=== PATIENT | female | born 2000 | race Caucasian/White ===

== ENCOUNTER 2020-10-16 10:28 | Emergency (ER) | payer MEDICAID, SELFPAY | END 2020-10-16 11:00 | disposition home or self-care (01) | LOC: CSHERS 10:28 | DX: Z32.01 Encounter for pregnancy test, result positive (principal) | CPT/HCPCS: 99281 ==

== ENCOUNTER 2020-10-18 12:08 | Emergency (ER) | payer SELFPAY ==
[2020-10-18 14:05] LABS: #Eosinphils 0.5 10x3/uL (0.0-0.5); #Monocytes 0.6 10x3/uL (0.0-1.1); %Basophils 0.4 % (0.0-2.0); %Eosinophils 9.2 % (0.0-6.0); %Monocytes 11.1 % (0.0-10.0); %Neutrophils 54.9 % (40.0-75.0); Hemoglobin 13.6 g/dL (12.0-15.5); Mean Corpuscular HGB CONC 32.9 g/dL (32.0-36.0); Mean Corpuscular Hemoglobin 28.6 pg (27.0-33.0); Mean Corpuscular Volume 87.2 fl (81.6-98.3); Mean Platelet Volume 10.6 fl (7.4-10.4); Platelet Count 273 10x3/uL (150-450); Red Blood Cell (RBC) Count 4.75 10x6/uL (3.90-5.03); White Blood Cell (WBC) Count 5.4 10x3/uL (3.5-10.5)
[2020-10-18 14:19] LABS: ALT (SGPT) 22 U/L (8-55); AST (SGOT) 19 U/L (5-34); Albumin 4.1 g/dL (3.5-5.0); Alkaline Phosphatase 126 U/L (40-110); Anion Gap 13 mmol/L (10-20); BUN (Urea Nitrogen) 15 mg/dL (7.0-18.7); Bilirubin, Total 0.8 mg/dL (0.2-1.2); Calc. Creatinine Clearance 0 mL/min (70-130); Calcium 8.9 mg/dL (7.8-10.44); Carbon Dioxide 23 mmol/L (22-29); Chloride 111 mmol/L (98-107); Globulin 2.7 g/dL (2.4-3.5); Glucose 93 mg/dL (70-105); Protein, Total 6.8 g/dL (6.0-8.3); Sodium 143 mmol/L (136-145)
[2020-10-18 14:58] LABS: Bilirubin Neg (Negative); Blood, Urine 250 (Negative); Clarity Clear (Clear); Glucose, Urine (Dipstick) Normal (Negative); Ketone, Urine Negative (Negative); Leukocyte 25 (Negative); Nitrite Negative (Negative); Protein, Urine (Dipstick) 15 mg/dl (Neg-Trace); Specific Gravity, Urine 1.025 (1.002-1.036)
[2020-10-18 15:08] LABS: Bacteria/HPF None Seen HPF (None Seen); Mucous/LPF 1+ LPF (<2+); Squamous Epithelial 0-3 HPF (0-3)
== END 2020-10-18 15:10 | disposition home or self-care (01) ==
LOC: CSHERS 12:08
DX: O20.9 Hemorrhage in early pregnancy, unspecified (principal)
CPT/HCPCS: 76856; 80053; 81003; 81015; 84702; 85025; 86900; 86901

== ENCOUNTER 2021-10-14 08:20 | Outpatient (CLI) | payer OTHER ==
[2021-10-14 18:46] LABS: SARS-CoV-2 PCR by NAA Not Detected (NotDetected)
== END 2021-10-14 08:21 | disposition home or self-care (01) ==
LOC: CSHLAB 08:20
PROVIDERS: ATTEND Student in an Organized Health Care Education/Training Program
DX: Z20.822 Contact with and (suspected) exposure to COVID-19 (principal)
CPT/HCPCS: U0003; U0005

== ENCOUNTER 2022-08-20 18:42 | Day surgery (SDC) | payer OTHER ==
[2022-08-20 19:15] VITALS: BMI 32.1
[2022-08-20] MEDS ORDERED: hydrALAZINE 20 MG/ML VIAL SLOW IVP PRN (19:57)
== END 2022-08-20 20:00 | disposition home or self-care (01) ==
LOC: CSHLD/OP 18:42
PROVIDERS: ATTEND Student in an Organized Health Care Education/Training Program
DX: O26.93 Pregnancy related conditions, unspecified, third trimester (principal); R10.2 Pelvic and perineal pain; Z3A.30 30 weeks gestation of pregnancy
CPT/HCPCS: 99282

== ENCOUNTER 2022-09-29 17:46 | Day surgery (SDC) | payer OTHER | END 2022-09-29 21:32 | disposition home or self-care (01) | LOC: CSHLD/OP 17:46 | PROVIDERS: ATTEND Student in an Organized Health Care Education/Training Program | DX: O47.03 False labor before 37 completed weeks of gestation, third trimester (principal); Z79.899 Other long term (current) drug therapy; Z3A.36 36 weeks gestation of pregnancy | CPT/HCPCS: 99283 ==

== ENCOUNTER 2022-10-19 05:23 | Inpatient (IN) | payer OTHER ==
[2022-10-19 06:02] VITALS: BMI 33.0
[2022-10-19] MEDS ORDERED: Lidocaine 1% (PF) 30 ML VIAL SC PRN (06:30)
[2022-10-19] MEDS ORDERED: Methylergonovine 0.2 MG/ML VIAL IM PRN (06:30)
[2022-10-19] MEDS ORDERED: Penicillin G Potassium 5 MILL.UNITS in Sodium Chloride 0.9% 100 ML IVPB SCH (06:30)
[2022-10-19] MEDS ORDERED: Acetaminophen 500 MG TAB PO PRN ×2 (06:30→15:56)
[2022-10-19] MEDS ORDERED: Butorphanol Tartrate 1 MG/ML VIAL SLOW IVP PRN (06:30)
[2022-10-19] MEDS ORDERED: Ondansetron PF 4 MG/2 ML Vial IVP PRN ×2 (06:30→15:56)
[2022-10-19] MEDS ORDERED: NS w/ Oxytocin 30 units 500 ML IV SCH ×3 (06:30→15:56)
[2022-10-19] MEDS ORDERED: Ibuprofen 800 MG TAB PO PRN (06:30)
[2022-10-19] MEDS ORDERED: Tranexamic Acid 1,000 MG/10 ML VIAL IVP PRN (06:30)
[2022-10-19] MEDS ORDERED: Diphenoxylate HCl/Atropine Tablet PO PRN (06:30)
[2022-10-19] MEDS ORDERED: HYDROcodone/Acetaminophen 5/325 mg Tablet PO PRN (06:30)
[2022-10-19] MEDS ORDERED: Promethazine HCl 25 MG/ML VIAL IM PRN ×2 (06:30→15:56)
[2022-10-19] MEDS ORDERED: Carboprost 250 MCG/ML AMP IM PRN (06:30)
[2022-10-19] MEDS ORDERED: Misoprostol 200 MCG TAB PR PRN (06:30)
[2022-10-19] MEDS ORDERED: Lactated Ringer's 1,000 ML IV SCH (06:30)
[2022-10-19] MEDS ORDERED: hydrALAZINE 20 MG/ML VIAL SLOW IVP PRN ×2 (06:30→15:56)
[2022-10-19] MEDS ORDERED: Penicillin G Potassium 5 MILL.UNITS VIAL ONE (06:36)
[2022-10-19 06:51] LABS: Hemoglobin 9.1 g/dL (12.0-15.5); Mean Corpuscular HGB CONC 31.5 g/dL (32.0-36.0); Mean Corpuscular Hemoglobin 26.1 pg (27.0-33.0); Mean Corpuscular Volume 82.8 fl (81.6-98.3); Mean Platelet Volume 10.8 fl (7.4-10.4); Platelet Count 265 10x3/uL (150-450); RBC Distribution Width 13.8 % (11.5-14.5); Red Blood Cell (RBC) Count 3.49 10x6/uL (3.90-5.03); White Blood Cell (WBC) Count 8.7 10x3/uL (3.5-10.5)
[2022-10-19 07:22] LABS: Syphilis Antibody Nonreactive (Nonreactive); Syphilis Antibody Index 0.03 S/CO (<1.00 Non-Reactive)
[2022-10-19 07:23] LABS: HBSAg Index 0.15 S/CO (0-0.99); Hep B Surf Ag - L&D Non-Reactive S/CO (NonReactive)
[2022-10-19] MEDS: Penicillin G 2.5 MILL.units 2.5 MILL.UNITS in Premix Bag 1 BAG IVPB SCH ×2 (10:33→18:04)
[2022-10-19] MEDS ORDERED: Misoprostol 200 MCG TAB ONE (15:23)
[2022-10-19] MEDS ORDERED: Benzocaine-Menthol 82.5 ML CAN TOP PRN (15:56)
[2022-10-19] MEDS ORDERED: Boostrix 0.5 ML (Tdap) VIAL (>/=7 yrs of age) IM ONE (15:56)
[2022-10-19] MEDS ORDERED: Misoprostol 200 MCG TAB VAG PRN (15:56)
[2022-10-19] MEDS ORDERED: Lanolin Ointment 7 GM TUBE TOP PRN (15:56)
[2022-10-19] MEDS ORDERED: diphenhydrAMINE 25 MG CAP PO PRN (15:56)
[2022-10-19] MEDS ORDERED: Preparation H Ointment 28 GM TUBE PR PRN (15:56)
[2022-10-19] MEDS ORDERED: Milk Of Magnesia 30 ML UDCUP PO PRN (15:56)
[2022-10-19] MEDS ORDERED: Bisacodyl 10 MG SUPP PR PRN (15:56)
[2022-10-19] MEDS: Ferrous Sulfate 325 MG TAB PO SCH ×2 (17:06→23:00)
[2022-10-19] MEDS: Ibuprofen 800 MG TAB PO SCH ×2 (17:06→23:01)
[2022-10-19] MEDS ORDERED: Ibuprofen 800 MG TAB PO SCH (22:00)
[2022-10-19] MEDS: Docusate 100 MG CAP PO SCH (23:00)
[2022-10-20] MEDS: Ibuprofen 800 MG TAB PO SCH ×2 (06:16→14:01)
[2022-10-20] MEDS: Ferrous Sulfate 325 MG TAB PO SCH (08:51)
[2022-10-20] MEDS: Docusate 100 MG CAP PO SCH (08:51)
[2022-10-20] MEDS ORDERED: Prenatal Vitamin 1 TAB PO SCH (09:00)
[2022-10-20 11:24] VITALS: BP 119/62; TEMP 97.8
== END 2022-10-20 17:15 | disposition home or self-care (01) | DRG 807 ==
LOC: CSHLD 05:23 → CSHPED 16:50
PROVIDERS: ADMIT Student in an Organized Health Care Education/Training Program; ATTEND Student in an Organized Health Care Education/Training Program
PROC: 10E0XZZ Delivery of Products of Conception, External Approach (ICD-10-PCS; principal; 2022-10-19)
DX: O99.824 Streptococcus B carrier state complicating childbirth (principal); Z37.0 Single live birth; Z3A.39 39 weeks gestation of pregnancy; O62.3 Precipitate labor
CPT/HCPCS: 85027; 86780; 86850; 86900; 86901; 87340; J2540; J2590; J3490; J7120